=== PATIENT | male | born 1990 | race Caucasian/White ===

== ENCOUNTER 2022-06-19 16:24 | Outpatient (REF) | payer BC, SELFPAY ==
[2022-06-19 15:26] LABS: Calculated LDL 120 mg/dL (<100); Cholesterol 224 mg/dL (<200); HDL Cholesterol 93 mg/dL (40-60); Triglyceride 57 mg/dL (<150)
[2022-06-19 15:37] LABS: Hemoglobin A1C 5.5 % (<5.7)
[2022-06-20 09:22] LABS: HIV-1/2 Ag & Ab Screen Negative (Negative)
[2022-06-20 09:47] LABS: Hepatitis C Ab w Rflx HCV PCR Negative (Negative)
== END 2022-06-19 16:25 | disposition home or self-care (01) ==
LOC: NCHCN 16:24
PROVIDERS: Visit Provider Nurse Practitioner Family
DX: Z00.00 Encounter for general adult medical examination without abnormal findings (principal); Z11.4 Encounter for screening for human immunodeficiency virus [HIV]; Z13.1 Encounter for screening for diabetes mellitus; Z11.59 Encounter for screening for other viral diseases; Z13.220 Encounter for screening for lipoid disorders
CPT/HCPCS: 80061; 86803; 87389; 83036